=== PATIENT | female | born 1985 | race Two or more races ===

== ENCOUNTER 2018-09-19 14:59 | Emergency (ER) | payer OTHER ==
[~2018-09-19] VITALS: Ht 154.9 cm; Wt 52.6 kg
--- OUTSIDE RECORDS SUMMARY | 2018-09-19 15:02 | XMS REPORT | Continuity of Care Document ---
Author Author [facility] Interface Address Unknown Phone Unavailable Problems Problem Status Onset Date Classification Date Reported Comments Source CROHN Active 11/15/2013 [facility] Crohns disease Resolved Problem 01/06/2014 [facility] Medications Medication Details Route Status Patient Instructions Ordering Provider Order Date Source mesalamine 500 MG Extended Release Capsule [Pentasa] 500 mg=1 cap, PO, QID, # 5 box, 0 Refill(s), other Active 01/04/2014 [facility] 24 HR Budesonide 3 MG Extended Release Enteric Coated Capsule [Entocort] 9 mg=3 cap, PO, Daily, # 90 cap, 0 Refill(s), other Inactive 01/04/2014 [facility] 24 HR Budesonide 3 MG Extended Release Enteric Coated Capsule [Entocort] 9 mg=3 cap, PO, Daily, # 2 btl, 0 Refill(s), other Active 01/04/2014 [facility] Pentasa 0 Refill(s) Active 01/04/2014 [facility] 24 HR Budesonide 3 MG Extended Release Enteric Coated Capsule [Entocort] 9 mg=3 cap, PO, Daily, # 90 cap, 0 Refill(s) Active 01/04/2014 [facility] Allergies, Adverse Reactions, Alerts Substance Category Reaction Severity Reaction type Status Date Reported Comments Source Immunizations Immunization Date Given Site Status Last Updated Comments Source Results Order Name Results Value Reference Range Date Interpretation Comments Source Vital Signs Vital Sign Value Date Comments Source Diastolic (mm Hg) 66 01/04/2014 [facility] Respitory Rate 16 01/04/2014 [facility] Heart Rate 73 01/04/2014 [facility] Weight 60.909 01/04/2014 [facility] BMI Calculated 25.37 01/04/2014 [facility] Height 154.94 cm 01/04/2014 [facility] Systolic (mm Hg) 110 01/04/2014 [facility] Encounters Location Location Details Encounter Type Encounter Number Reason For Visit Attending Provider ADM Date DC Date Status Source [facility] [id number] Pamela Grant 01/04/2014 01/05/2014 [facility] Procedures Procedure Code Date Perfomer Comments Source
--- OUTSIDE RECORDS SUMMARY | 2018-09-19 15:02 | XMS REPORT | Summary of Care ---
Author Organization Unknown Address Unknown Phone Unavailable Encounter SAIRA Brown([id number]) [id number] Date(s): 01/04/14 - 01/04/[address] Discharge Disposition: Home Physician Attending: Pamela Grant MD Physician_Referring: Physician, Non Associated MD Reason for Visit CROHN Vital Signs Most recent to 1 oldest [Reference Range]: Height 154.94 cm (01/04/14 1:50 PM) Systolic Blood 110 mmHg Pressure [90-140 (01/04/14 1:50 PM) mmHg] Diastolic Blood 66 mmHg Pressure [60-90 (01/04/14 1:50 PM) mmHg] Respiratory Rate 16 BRMIN [14-20 BRMIN] (01/04/14 1:50 PM) Peripheral Pulse 73 bpm Rate [60-100 bpm] (01/04/14 1:50 PM) Weight 60.909 kg (01/04/14 1:50 PM) Body Mass Index 25.37 m2 (01/04/14 1:50 PM) Problem List Condition Effective Dates Status Health Status Informant Crohns Resolved disease(Confirmed) Allergies, Adverse Reactions, Alerts Substance Reaction Severity Status NKDA Active Medications Entocort EC 3 mg oral capsule, extended release 9 mg=3 cap, PO, Daily, # 90 cap, 0 Refill(s), other Start Date: 01/04/14 Stop Date: 01/04/14 Status: Deleted Entocort EC 3 mg oral capsule, extended release 9 mg=3 cap, PO, Daily, # 2 btl, 0 Refill(s), other Start Date: 01/04/14 Status: Ordered Entocort EC 3 mg oral capsule, extended release 9 mg=3 cap, PO, Daily, # 90 cap, 0 Refill(s) Start Date: 8/20/14 Status: Ordered Pentasa 0 Refill(s) Start Date: 01/04/14 Status: Ordered Pentasa 500 mg oral capsule, extended release 500 mg=1 cap, PO, QID, # 5 box, 0 Refill(s), other Start Date: 01/04/14 Status: Ordered Medications Administered During Your Visit No data available for this section Immunizations No data available for this section Social History Social History Type Response Smoking Status Current every day smoker, Type: Cigarettes, Exposure to Tobacco Smoke None, Cigarette Smoking Last 365 Days Yes, Reg Smoking Cessation Counseling No
[2018-09-19] MEDS ORDERED: HYDROCODONE/APAP 5MG-325MG TAB PO ONE (16:15)
--- NOTE | 2018-09-19 18:44 | Diagnostic Imaging Report ---
EXAM: CT of the abdomen and pelvis WITH contrast HISTORY: Severe abdominal pain, severe pain in rectum, hemorrhoids negative urine test COMPARISON: None. TECHNIQUE: The abdomen and pelvis were scanned utilizing a multidetector helical scanner. Coronal and sagittal reformats are provided. PROTOCOL: Routine IV CONTRAST: 100 cc of Isovue-370. ORAL CONTRAST: None, which limits sensitivity and specificity of the exam. RADIATION DOSE: Total DLP: 300.91 mGy*cm Estimated effective dose: (DLP x 0.015 x size factor) Dose modulation, iterative reconstruction, and/or weight based adjustment of the mA/kV was utilized to reduce the radiation dose to as low as reasonably achievable. COMPLICATIONS: None FINDINGS: LOWER THORAX: Unremarkable. HEPATOBILIARY: No mass. No biliary dilation. No calcified gallstone. SPLEEN: No splenomegaly. PANCREAS: No focal masses or ductal dilatation. ADRENALS: No discrete adrenal nodule. KIDNEYS/URETERS: No hydronephrosis, stones, or definite solid mass lesions. PELVIC ORGANS/BLADDER: The uterus is anteflexed. GI TRACT: No dilation or wall thickening identified. The appendix is not definitively visible, but no inflammatory changes about the cecum. PERITONEUM / RETROPERITONEUM: Trace free fluid in the pelvis, likely physiologic. LYMPH NODES: No pathologically enlarged lymph node. VESSELS: Prominent periuterine vasculature, prominent left gonadal vein, and the aortic superior mesenteric artery angle is decreased, 24 degrees. BONES: No aggressive osseous lesion or acute fracture. Transitional lumbosacral anatomy. SOFT TISSUES: Unremarkable. IMPRESSION: 1. 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 2. No acute CT abnormality. Signed by: Dr. Dionisio Ortega D.O., M.M.M. on 09/19/2018 6:40 PM
[2018-09-19] MEDS ORDERED: MORPHINE SULFATE 2 MG/ML SYR 1ML IV STA (18:53)
[2018-09-19] MEDS ORDERED: METHYLPREDNISOLONE SOD SUCC 125 MG/2ML VIAL IV ONE (19:15)
[2018-09-19] MEDS ORDERED: METRONIDAZOLE 500MG/NS 100ML 100 ML IV ONE (19:15)
[2018-09-19 19:34] VITALS: BP 114/67
== END 2018-09-19 19:39 | disposition home or self-care (01) ==
LOC: FSED 14:59
DX: K62.89 Other specified diseases of anus and rectum (principal); Z87.19 Personal history of other diseases of the digestive system; F17.210 Nicotine dependence, cigarettes, uncomplicated
CPT/HCPCS: 74177; 80048; 81025; 85025; 99284; J2270; J2930

== ENCOUNTER 2020-09-17 18:53 | Emergency (ER) | payer OTHER ==
[~2020-09-17] VITALS: Ht 154.9 cm; Wt 52.6 kg
[2020-09-17] MEDS ORDERED: ONDANSETRON HCL INJ 2MG/ML 2ML 2 MG/ML VIAL ONE (20:16)
[2020-09-17] MEDS ORDERED: SODIUM CHLORIDE 0.9% 1000ML 1,000 ML ONE ×2 (20:16→21:01)
[2020-09-17] MEDS ORDERED: ONDANSETRON HCL INJ 2MG/ML 2ML 2 MG/ML VIAL IV STA (20:24)
[2020-09-17] MEDS ORDERED: SODIUM CHLORIDE 0.9% 1000ML 1,000 ML IV ONE (20:30)
[2020-09-17] MEDS ORDERED: KETOROLAC TROMETHAMINE 30 MG/ML VIAL IV STA (20:51)
[2020-09-17] MEDS ORDERED: SODIUM CHLORIDE 0.9% 1000ML 1,000 ML IV SCH (21:00)
[2020-09-17] MEDS ORDERED: KETOROLAC TROMETHAMINE 30 MG/ML VIAL ONE (21:01)
[2020-09-17] MEDS ORDERED: ALBUTEROL SULFATE HFA 8GM INHALATION AEROSOL INH ONE (21:59)
[2020-09-17] MEDS ORDERED: PROMETHAZINE HC25 M1 PO (22:22)
[2020-09-17] MEDS ORDERED: DEXAMETHASONE6 MG PO (22:24)
[2020-09-17] MEDS ORDERED: AZITHROMYCIN250 MG PO (22:24)
== END 2020-09-17 22:30 | disposition home or self-care (01) ==
LOC: FSED 19:13
DX: R19.7 Diarrhea, unspecified (principal); B34.9 Viral infection, unspecified; D84.821 Immunodeficiency due to drugs; T39.4X5A Adverse effect of antirheumatics, not elsewhere classified, initial encounter; Z20.822 Contact with and (suspected) exposure to COVID-19; D64.9 Anemia, unspecified; K50.90 Crohn's disease, unspecified, without complications
CPT/HCPCS: 80053; 85025; 99283; J1885; J2405; J7030

== ENCOUNTER 2020-09-25 11:19 | Emergency (ER) | payer OTHER ==
[~2020-09-25] VITALS: Ht 154.9 cm; Wt 52.2 kg
[~2020-09-25 11:19] MED LIST: AZITHROMYCIN250 MG PO; DEXAMETHASONE6 MG PO; PROMETHAZINE HC25 M1 PO
== END 2020-09-25 11:50 | disposition home or self-care (01) ==
LOC: FSED 11:37
DX: U07.1 COVID-19 (principal); R05 Cough; R06.02 Shortness of breath; R53.1 Weakness
CPT/HCPCS: 99282

== ENCOUNTER 2021-08-29 21:15 | Emergency (ER) | payer OTHER ==
[~2021-08-29] VITALS: Ht 154.9 cm; Wt 52.2 kg
[2021-08-29] MEDS ORDERED: ONDANSETRON HCL 4 MG ORAL DISINTEGRATING TAB PO ONE (23:45)
[2021-08-30] MEDS ORDERED: ONDANSETRON HCL 4 MG ORAL DISINTEGRATING TAB ONE (00:01)
[2021-08-30] MEDS ORDERED: ONDANSETRON ODT4 MG PO (01:29)
== END 2021-08-30 | disposition home or self-care (01) ==
LOC: FSED 22:02
DX: U07.1 COVID-19 (principal); B34.9 Viral infection, unspecified; R11.0 Nausea; K50.90 Crohn's disease, unspecified, without complications
CPT/HCPCS: 99282; Q0162